=== PATIENT | male | born 1985 | race Caucasian/White ===

== ENCOUNTER 2017-02-22 20:06 | Emergency (ER) | payer OTHER ==
[2017-02-22 20:07] VITALS: BMI 29.6
[2017-02-22 20:20] VITALS: TEMP 98
[2017-02-22 20:28] VITALS: RESP 16
--- NOTE | 2017-02-22 20:35 | C.PDOC ---
History Of Present Illness 32 y/o male, with PMHx of anxiety attacks, presents to the ED for evaluation of increase anxiety which began earlier today. Patient admits to alcohol use and cocaine use for the first time to celebrate his birthday. Patient denies palpitations, shortness of breath, suicidal/homicidal ideation. Time Seen by Provider: 02/22/17 20:12 Chief Complaint (Nursing): Anxiety History Per: Patient History/Exam Limitations: no limitations Onset/Duration Of Symptoms: Hrs Current Symptoms Are (Timing): Still Present Suicide/Self Injury Attempted (Context): None Modifying Factor(s): Alcohol, Cocaine Associated Symptoms: Anxiety. denies: Suicidal Thoughts, Suicidal Plan Involuntary Hold By: None Recent travel outside of the [place]: No Additional History Per: Patient Past Medical History Reviewed: Historical Data, Nursing Documentation, Vital Signs Vital Signs: Last Vital Signs Temp 98 F 02/22/17 20:09 Pulse 80 02/22/17 20:44 Resp 16 02/22/17 20:44 BP 120/71 02/22/17 20:44 Pulse Ox 96 02/22/17 21:21 - Medical History PMH: Gastritis Surgical History: No Surg Hx Family History: States: Unknown Family Hx - Social History Hx Tobacco Use: No Hx Alcohol Use: Yes Hx Substance Use: Yes - Immunization History Hx Tetanus Toxoid Vaccination: No Hx Influenza Vaccination: No Hx Pneumococcal Vaccination: No Review Of Systems Cardiovascular: Negative for: Palpitations Respiratory: Negative for: Shortness of Breath Psych: Positive for: Anxiety, Other (+alcohol and cocaine use ). Negative for: Suicidal ideation Physical Exam - Physical Exam Appears: Non-toxic, No Acute Distress Skin: Normal Color, Warm, Dry Head: Atraumatic Eye(s): bilateral: Normal Inspection Oral Mucosa: Moist Neck: Supple Chest: Symmetrical, No Deformity, No Tenderness Cardiovascular: Rhythm Regular, No Murmur Respiratory: Normal Breath Sounds, No Rales, No Rhonchi, No Wheezing Extremity: Normal ROM, Capillary Refill (less than 2 seconds ) Neurological/Psych: Normal Speech, Normal Cognition, Other (calm ) Gait: Steady ED Course And Treatment ECG Rhythm: Sinus Rhythm Interpretation Of ECG: Normal Sinus Rhythm at rate 75bpm. Rate From EC O2 Sat by Pulse Oximetry: 96 (on RA) Pulse Ox Interpretation: Normal Progress Note: EKG ordered and reviewed. Patient received Xanax PO. Medical Decision Making Medical Decision Making: alcohol and cocaine abuse yesterday h/o panic attacks same today, vs withdrawal syndrome normal exam and EKG now, pt asymptomatic. Xanax given, educated to avoid substance abuse. Disposition Doctor Will See Patient In The: Office Counseled Patient/Family Regarding: Studies Performed, Diagnosis - Disposition Referrals: Alcoholics Anonymous [Outside] [facility] [Outside] [facility] [Outside] Disposition: HOME/ ROUTINE Disposition Time: 20:34 Condition: GOOD Additional Instructions: casa de abusar alcohol y cocaina Sigue en [facility] para ayudas con joe addicciones. Instructions: Cocaine Abuse (ED), Abuse of Alcohol (ED), Anxiety (ED) Forms: [employer] (Slovenian) Print Language: TANZANIAN - Clinical Impression Clinical Impression: Anxiety, Cocaine abuse, Alcohol abuse - Scribe Statement The provider has reviewed the documentation as recorded by the Scribe (María Marcano) Provider Attestation: All medical record entries made by the Scribe were at my direction and personally dictated by me. I have reviewed the chart and agree that the record accurately reflects my personal performance of the history, physical exam, medical decision making, and the department course for this patient. I have also personally directed, reviewed, and agree with the discharge instructions and disposition.
[2017-02-22 20:45] VITALS: BP 120/71; PULSE 80
[2017-02-22 21:19] VITALS: O2SAT 96
--- NOTE | 2017-02-23 14:19 | CARD ---
APPROVED REPORT EKG Measurement Heart [id number] <Conclusion> Normal sinus rhythm Normal ECG
== END 2017-02-22 20:45 | disposition home or self-care (01) ==
LOC: C.ER 20:06
DX: F41.9 Anxiety disorder, unspecified (principal); F14.10 Cocaine abuse, uncomplicated; F10.10 Alcohol abuse, uncomplicated; Y90.9 Presence of alcohol in blood, level not specified

== ENCOUNTER 2017-10-05 18:34 | Emergency (ER) | payer OTHER ==
[2017-10-05 18:34] VITALS: BMI 29.6
[2017-10-05 18:44] VITALS: TEMP 98.2
[2017-10-05] MEDS ORDERED: Sodium Chloride 0.9% 500 ML IV ONE (19:22)
[2017-10-05] MEDS ORDERED: DiphenhydrAMINE 50 mg/ml Inj IVP STA (19:22)
[2017-10-05 19:36] LABS: BASO % 0.7 % (0.0-2.0); EOS # 0.1 K/uL (0.0-0.7); EOS % 2.4 % (0.0-4.0); HEMOGLOBIN 13.7 g/dL (12.0-18.0); LYMPH # 1.6 K/uL (1.0-4.3); MEAN CELL VOLUME 89.5 fL (80.0-94.0); MEAN CORPUSCULAR HEMOGLOBIN 30.9 pg (27.0-31.0); MEAN CORPUSCULAR HGB CONC 34.5 g/dL (33.0-37.0); MEAN PLATELET VOLUME 8.9 fL (7.2-11.7); MONO # 0.4 K/uL (0.0-0.8); MONO % 5.9 % (0.0-10.0); NEUT # 3.8 K/uL (1.8-7.0); RBC 4.43 Mil/uL (4.40-5.90); RED CELL DISTRIBUTION WIDTH 13.3 % (11.5-14.5)
--- NOTE | 2017-10-05 19:39 | C.PDOC ---
History Of Present Illness 32 year old male presents to the ER with a complaint of a headache for the past 1.5 month. Patient was seen by his PMD who started him on lisinopril for 15 days after he was found to have an elevated blood pressure. Patient states he was told to go to the hospital if the symptoms persist after the treatment. Patient reports he was also taking OTC medication with no relief. Denies change in vision, neck pain, numbness, weakness, nausea, vomiting, or fever. Time Seen by Provider: 10/05/17 18:56 Chief Complaint (Nursing): Headache History Per: Patient History/Exam Limitations: no limitations Onset/Duration Of Symptoms: Days Current Symptoms Are (Timing): Still Present Preceeding Symptoms: None Associated Symptoms: denies: Photophobia, Blurred Vision, Nausea, Vomiting, Extremity Weakness Recent travel outside of the [place]: No Past Medical History Reviewed: Historical Data, Nursing Documentation, Vital Signs Vital Signs: Last Vital Signs Temp 98.2 F 10/05/17 18:39 Pulse 74 10/05/17 21:38 Resp 18 10/05/17 21:38 BP 132/74 10/05/17 21:38 Pulse Ox 99 10/05/17 22:50 - Medical History PMH: Anxiety, Gastritis, HTN Family History: States: Unknown Family Hx - Social History Hx Tobacco Use: No Hx Alcohol Use: Yes Hx Substance Use: Yes - Immunization History Hx Tetanus Toxoid Vaccination: Yes Hx Influenza Vaccination: No Hx Pneumococcal Vaccination: No Review Of Systems Except As Marked, All Systems Reviewed And Found Negative. Constitutional: Negative for: Fever, Chills Cardiovascular: Negative for: Chest Pain, Palpitations Respiratory: Negative for: Shortness of Breath Gastrointestinal: Negative for: Nausea, Vomiting Neurological: Positive for: Headache Physical Exam - Physical Exam Appears: Non-toxic, No Acute Distress Skin: Normal Color, Warm, Dry, No Rash Head: Atraumatic, Normacephalic Eye(s): bilateral: Normal Inspection, PERRL, EOMI Ear(s): Bilateral: Normal Oral Mucosa: Moist Throat: No Erythema, No Exudate Neck: Normal, Supple Chest: Symmetrical, No Tenderness Cardiovascular: Rhythm Regular, No Friction Rub, No Murmur Respiratory: Normal Breath Sounds, No Rales, No Rhonchi, No Wheezing Gastrointestinal/Abdominal: Soft, No Tenderness Back: Normal Inspection, No CVA Tenderness Extremity: Normal ROM (x4), No Swelling Neurological/Psych: Oriented x3, Normal Speech, Normal Motor Gait: Steady ED Course And Treatment - Laboratory Results Result Diagrams: 10/05/17 19:32 10/05/17 19:32 O2 Sat by Pulse Oximetry: 99 (Room air) Pulse Ox Interpretation: Normal Medical Decision Making Medical Decision Making: CT head, blood work, and urinalysis ordered. Benadryl, reglan, toradol, and IV fluids administered. CT Head: Unremarkable. On re-exam, the patient reports improvement of symptoms. Lungs are CTA, heart is RRR, abdomen is soft, non-tender and tolerating. Disposition - Disposition Referrals: Lewis Haywood MD [Non-Staff] - Disposition: HOME/ ROUTINE Disposition Time: 21:08 Condition: FAIR Additional Instructions: Follow up with the medical doctor within 1-2 days. Return if worsened. Prescriptions: Metoclopramide [Reglan] 1 tab PO TID PRN #25 tab PRN Reason: Nausea/Vomiting Naproxen [Naprosyn] 500 mg PO BID #20 tab Instructions: Migraine Headache (DC) Forms: [employer] (Kiswahili) Print Language: DANISH - Clinical Impression Clinical Impression: Headache - PA / RUG REPAIRER / Resident Statement MD/DO has reviewed & agrees with the documentation as recorded. - Scribe Statement The provider has reviewed the documentation as recorded by the Scribe Mike Lau All medical record entries made by the Scribe were at my direction and personally dictated by me. I have reviewed the chart and agree that the record accurately reflects my personal performance of the history, physical exam, medical decision making, and the department course for this patient. I have also personally directed, reviewed, and agree with the discharge instructions and disposition.
[2017-10-05] MEDS ORDERED: DiphenhydrAMINE 50 mg/ml Inj ONE (19:41)
[2017-10-05 19:52] LABS: ALB/GLOB RATIO 1.3 (1.0-2.1); ALBUMIN 4.4 g/dL (3.5-5.0); ALT/SGPT 36 U/L (21-72); AST/SGOT 22 U/L (17-59); BLOOD UREA NITROGEN 20 mg/dL (9-20); CALCIUM 8.5 mg/dl (8.6-10.4); GFR AFRICAN-AMERICAN > 60; GFR NON-AFRICAN AMERICAN > 60
--- NOTE | 2017-10-05 20:56 | CT ---
EXAM: CT Head Without Intravenous Contrast EXAM DATE/TIME: 10/05/2017 7:22 PM CLINICAL HISTORY: 32 years old, male; Pain; Headache; Headache not specified; Additional info: Headache several weeks TECHNIQUE: Axial computed tomography images of the head/brain without intravenous contrast. All CT scans at this facility use one or more dose reduction techniques, viz.: automated exposure control; ma/kV adjustment per patient size (including targeted exams where dose is matched to indication; i.e. head); or iterative reconstruction technique. COMPARISON: CT - HEAD W/O CONT 2012-10-31 01:54 FINDINGS: Brain: Ventricles are normal in size and configuration. There is no midline shift. There are no intra-axial or extra-axial mass lesions or areas of hemorrhage. There are no abnormal fluid collections. Robledo-white differentiation is maintained. Ventricles: See above. Old Bones: Cranial vault is intact. Soft tissues: unremarkable Sinuses: There is no acute sinusitis. Ears and mastoids: Middle ears and mastoids are unremarkable Orbits: Orbital contents are unremarkable. IMPRESSION: No acute intracranial abnormality
[2017-10-05 21:38] VITALS: BP 132/74; PULSE 74; RESP 18
[2017-10-05 22:51] VITALS: O2SAT 99
== END 2017-10-05 21:38 | disposition home or self-care (01) ==
LOC: C.ER 18:34
DX: R51 Headache (principal)
CPT/HCPCS: 70450; 80053; 85025; 96361; 96374; 96375; 99285; J1200; J1885; J2765; J7040